=== PATIENT | male | born 1950 | race Caucasian/White ===

== ENCOUNTER 2017-03-07 13:09 | Day surgery (SDC) | payer OTHER, MEDICARE ==
[~2017-03-07] VITALS: Ht 182.9 cm; Wt 68.2 kg
[~2017-03-07 13:09] MED LIST: NO HOME MEDS
[2017-03-07 13:20] VITALS: BP 130/73
[2017-03-07] MEDS ORDERED: MIDAZolam 1mg/ml 10ml vial ONE (13:31)
[2017-03-07] MEDS ORDERED: fentaNYL/PF 50MCG/1 ML 2ML syringe ONE (13:31)
[2017-03-07 14:06] VITALS: BP 105/60
[2017-03-07 14:15] VITALS: BP 111/75
[2017-03-07 14:25] VITALS: BP 105/58
[2017-03-07 14:35] VITALS: BP 114/64
== END 2017-03-07 14:55 | disposition home or self-care (01) ==
LOC: GI LAB 13:09
PROVIDERS: ATTEND Internal Medicine Gastroenterology
DX: Z12.11 Encounter for screening for malignant neoplasm of colon (principal); K63.5 Polyp of colon; K64.8 Other hemorrhoids
CPT/HCPCS: 45390; 99152; J2250; J3010; J7030; 45385; A4620; G0500